=== PATIENT | female | born 1985 | race American Indian/Alaskan Native ===

== ENCOUNTER 2016-12-09 07:24 | Inpatient (IN) | payer OTHER ==
[2016-12-09] MEDS ORDERED: POLYCILLIN/NS 2 GM/100 ML 2 GM/100 ML BAG IV ONE (08:00)
[2016-12-09] MEDS ORDERED: LACTATED RINGERS 1,000 ML IV SCH (08:00)
[2016-12-09] MEDS ORDERED: PITOCin/NS 20 UNIT/1000ML DRIP 20,000 MILLIUNITS/1,000 ML BAG IV ONE (08:20)
[2016-12-09 08:25] LABS: Hematocrit 35.2 % (30.3-42.9); Hemoglobin 11.2 gm/dl (10.1-14.3); Mean Corpuscular HGB Conc 32 % (30-34); Mean Corpuscular Volume 73 fl (79-97); Platelet Count 256 K/mm3 (140-440); Red Blood Count 4.82 M/mm3 (3.65-5.03); Red Cell Distribution Width 15.3 % (13.2-15.2); White Blood Count 13.9 K/mm3 (4.5-11.0)
[2016-12-09] MEDS ORDERED: SUBLIMAZE IV ONE (08:30)
[2016-12-09 08:40] LABS: Mean Corpuscular Hemoglobin 23 pg (28-32)
[2016-12-09] MEDS ORDERED: PITOCin/NS 20 UNIT/1000ML DRIP 20 UNITS/1,000 ML BAG IV SCH (09:00)
--- NOTE | 2016-12-09 09:05 | History and Physical Report ---
History of Present Illness Date of examination: 12/09/16 Date of admission: 12/09/16 07:30 Chief complaint: I'm in labor. History of present illness: Patient is a 31 year old who presents in active labor with EDc 12/21/2016. [place] [facility] [place] but presented to [facility] in active labor. She has some records with her for review. GBS status is unknown. Past History Past Medical History: no pertinent history Past Surgical History: no surgical history - Obstetrical History Expected Date of Delivery: 12/21/16 Actual Gestation: 38 Week(s) 3 Day(s) : 2 Para: 1 Medications and Allergies Allergies Allergy/AdvReac Type Severity Reaction Status Date / Time No Known Allergies Allergy Unverified 08/27/13 11:37 Home Medications Medication Instructions Recorded Confirmed Last Taken Type Ciprofloxacin HCl [Cipro] 500 mg PO Q12H #20 tab 08/27/13 12/09/16 Unknown Rx Promethazine [Phenergan] 25 mg PO Q6H PRN #10 tablet 08/27/13 12/09/16 Unknown Rx Active Meds: Active Medications Lactated Ringer's (Lactated Ringers) 1,000 mls @ 125 mls/hr IV DIRECT ODELL - Vital Signs Vital signs: Vital Signs Temp Pulse Resp BP 97.7 F 101 H 22 136/88 12/09/16 07:45 12/09/16 07:45 12/09/16 07:45 12/09/16 07:45 Temp Pulse Resp BP Pulse Ox 97.4 F L 105 H 22 128/72 12/09/16 08:40 12/09/16 08:53 12/09/16 07:45 12/09/16 08:53 Results Result Diagrams: 12/09/16 21:32 Abnormal lab results 12/09/16 Range/Units 08:00 WBC 13.9 H (4.5-11.0) K/mm3 MCV 73 L (79-97) fl MCH 23 L (28-32) pg RDW 15.3 H (13.2-15.2) % All other labs normal. Assessment and Plan Admit for labor. Anticipate . Draw all labs
--- NOTE | 2016-12-09 09:11 | Procedure Note ---
OB Delivery Note - Delivery Date of Delivery: 12/09/16 Surgeon: FLORI WHITLOCK Estimated blood loss: 200cc - Vaginal Delivery presentation: vertex Delivery position: OA Delivery monitor: external FHT, external uterine Route of delivery: Delivery placenta: spontaneous Delivery cord: 3 umbilical vessels Delivery laceration: none Delivery comments: Viable male delivered over intact perineum. Infant placed on maternal abdomen. Weight 6 pounds 13 ounces. NO nuchal cord. Placenta delivered spontaneously and intact with 3vc. No lacerations. Patient tolerated procedure well. EBL 300. - Infant A at 1 minute: 9 at 5 minutes: 9 Infant Gender: Male
[2016-12-09] MEDS ORDERED: DULCOLAX PR PRN (11:00)
[2016-12-09] MEDS ORDERED: PHENERGAN PR PRN (11:30)
[2016-12-09] MEDS ORDERED: ZOFRAN IV PRN (11:30)
[2016-12-09] MEDS ORDERED: TUCKS PAD TP PRN (11:30)
[2016-12-09] MEDS ORDERED: BENADRYL PO PRN (11:30)
[2016-12-09] MEDS ORDERED: NORCO 5/325 PO PRN (11:30)
[2016-12-09] MEDS ORDERED: PHENERGAN PO PRN (11:30)
[2016-12-09] MEDS ORDERED: LANSINOH TP PRN (11:30)
[2016-12-09] MEDS ORDERED: SODIUM CHLORIDE FLUSH SYRINGE 10 ML IV PRN (11:30)
[2016-12-09] MEDS ORDERED: TYLENOL PO PRN (11:30)
[2016-12-09] MEDS: MOTRIN PO SCH ×2 (12:30→18:30)
[2016-12-09] MEDS ORDERED: MILK OF MAGNESIA PO PRN (22:00)
[2016-12-09 22:28] LABS: Hemoglobin 10.1 gm/dl (10.1-14.3)
[2016-12-10] MEDS: MOTRIN PO SCH (08:48)
[2016-12-10] MEDS: PRENATAL VITAMIN PO SCH (10:50)
[2016-12-10] MEDS: COLACE PO SCH (10:50)
--- NOTE | 2016-12-10 12:38 | Progress Note ---
Assessment and Plan PPD 1 s/p . Patient was a walk in. No records are available for review. to stay for unknown GBS status -untreated. Plan for discharge on tomorrow Subjective - Subjective Date of service: 12/10/16 Interval history: Patient is a 31 year old who presents in active labor with EDc 12/21/2016. [place] [facility] [place] presented to [facility] in active labor. She has some records with her for review. GBS status is unknown. Patient reports: appetite normal, voiding normally, ambulating normally : doing well Objective - Vital Signs Latest vital signs: Vital Signs Temp Pulse Resp BP 12/10/16 08:00 98 F 87 121/77 12/10/16 00:00 98.6 F 77 16 121/80 12/09/16 20:30 98.6 F 81 18 125/81 12/09/16 16:30 98.5 F 90 18 132/79 Intake and Output 12/09/16 12/10/16 12/10/16 22:59 06:59 14:59 Intake Total 540 850 Balance 540 850 Intake: Oral 240 250 Intake, Free Water 300 600 Other: Total, Intake Amount 240 250 # Voids Void 1 - Exam Cardiovascular: Present: Regular rate, Normal S1, Normal S2 Lungs: Present: Clear to auscultation, Normal air movement Abdomen: Present: normal appearance, soft, normal bowel sounds Vulva: both: normal Uterus: Present: normal, firm Extremities: Present: normal Deep Tendon Reflex Grade: Normal +2
--- NOTE | 2016-12-10 12:42 | Discharge Summary ---
Providers - Providers Date of Admission: 12/09/16 07:30 Date of discharge: 12/11/16 Attending physician: FLORI WHITLOCK Primary care physician: FLORI WHITLOCK Hospitalization Reason for admission: active labor Delivery: complications: none Discharge diagnosis: IUP at term delivered [place] baby: male Hospital course: Unremarkable Condition at discharge: Good Disposition: DC-01 TO HOME OR SELFCARE Plan - Discharge Medications Prescriptions: Ibuprofen [Motrin] 600 mg PO Q8H PRN #40 tablet PRN Reason: Pain - Provider Discharge Summary Activity: routine, no sex for 6 weeks, no heavy lifting 4 weeks, no strenuous exercise Diet: routine Instructions: routine Additional instructions: [] Smoking cessation referral if applicable(refer to patient education folder for contact #) [] Refer to [facility]'s [facility] Booklet Call your doctor immediately for: * Fever > 100.5 * Heavy vaginal bleeding ( >1 pad per hour) * Severe persistent headache * Shortness of breath * Reddened, hot, painful area to leg or breast * Drainage or odor from incision. * Keep incision clean and dry at all times and follow doctor's instructions regarding bathing/showering - Follow up plan Follow up: FLORI WHITLOCK MD [Primary Care Provider] - 6 Weeks
[2016-12-11] MEDS: MOTRIN PO SCH ×2 (01:48→06:55)
[2016-12-11] MEDS: PRENATAL VITAMIN PO SCH (11:50)
[2016-12-11] MEDS: COLACE PO SCH (11:50)
[2016-12-11 14:28] VITALS: BP 124/72
== END 2016-12-11 13:20 | disposition home or self-care (01) | DRG 775 ==
LOC: TRG 07:24 → LD 07:30 → OB 10:28
PROVIDERS: ADMIT Obstetrics & Gynecology; ATTEND Obstetrics & Gynecology
PROC: 10E0XZZ Delivery of Products of Conception, External Approach (ICD-10-PCS; principal; 2016-12-09)
DX: O99.824 Streptococcus B carrier state complicating childbirth (principal); Z3A.38 38 weeks gestation of pregnancy; Z37.0 Single live birth
CPT/HCPCS: 36415; 85014; 85018; 85027; 86592; 86762; 86850; 86900; 86901; 99211; G0463; J0290; J2590; J3010